=== PATIENT | female | born 1990 | race American Indian/Alaskan Native ===

== ENCOUNTER 2017-10-21 13:32 | Emergency (ER) | payer MEDICAID, OTHER ==
[2017-10-21 14:20] VITALS: BP 114/59
[2017-10-21 14:45] LABS: Basophils % (Auto) 0.5 % (0.0-1.8); Eosinophils % (Auto) 0.3 % (0.0-4.3); Hematocrit 39.4 % (30.3-42.9); Hemoglobin 13.3 gm/dl (10.1-14.3); Mean Corpuscular HGB Conc 34 % (30-34); Mean Corpuscular Hemoglobin 30 pg (28-32); Mean Corpuscular Volume 89 fl (79-97); Platelet Count 254 K/mm3 (140-440); Red Blood Count 4.43 M/mm3 (3.65-5.03); Red Cell Distribution Width 12.6 % (13.2-15.2); White Blood Count 9.1 K/mm3 (4.5-11.0)
[2017-10-21 15:28] LABS: Bilirubin,Urine Negative (Negative); Blood,Urine Moderate (Negative); Ketones,Urine Negative (Negative)
[2017-10-21 15:29] LABS: Leukocyte Esterase,Urine Moderate (Negative); Nitrite,Urine Negative (Negative)
[2017-10-21 15:38] LABS: Trichomonas,Urine Present /HPF
== END 2017-10-21 21:15 | disposition left against medical advice (07) ==
LOC: ED 13:32
DX: Z53.21 Procedure and treatment not carried out due to patient leaving prior to being seen by health care provider (principal)
CPT/HCPCS: 36415; 81001; 81025; 83880; 84703; 85025

== ENCOUNTER 2017-12-17 09:28 | Outpatient (CLI) | payer OTHER, MEDICAID ==
[2017-12-17 10:15] VITALS: BP 109/58
[2017-12-17 10:22] LABS: Bilirubin,Urine NEG (Negative); Blood,Urine NEG (Negative); Color,Urine Yellow (Yellow); Mucus,Urine FEW /HPF; Nitrite,Urine NEG (Negative); Protein,Urine <15 mg/dL mg/dL (Negative)
== END 2017-12-17 10:45 | disposition home or self-care (01) ==
LOC: TRG 09:28
PROVIDERS: ATTEND Obstetrics & Gynecology
DX: O47.02 False labor before 37 completed weeks of gestation, second trimester (principal); Z3A.20 20 weeks gestation of pregnancy
CPT/HCPCS: 59025; 81001

== ENCOUNTER 2022-05-05 11:11 | Outpatient (CLI) | payer OTHER ==
[2022-05-05 11:46] VITALS: BP 121/64
[2022-05-05 12:42] LABS: Bacteria,Urine 1+ /HPF (Negative); Mucus,Urine 3+ /HPF
[2022-05-05 12:49] LABS: Bilirubin,Urine Negative (Negative); Color,Urine Yellow (Yellow)
[2022-05-05 12:50] LABS: Blood,Urine Negative (Negative)
[2022-05-05 12:53] LABS: Amphetamine Screen,Urine Negative; Benzodiazepines Screen,Urine Negative; Cannabinoid Screen,Urine Negative; Cocaine Screen,Urine Negative; Methadone Screen,Urine Negative; Opiate Screen,Urine Negative
--- NOTE | 2022-05-05 12:57 | Ultrasound Report ---
ULTRASOUND OBSTETRIC LIMITED INDICATION / CLINICAL INFORMATION: r/o abruption. - Clinical Gestational Age (GA) in weeks, days: 30, 2 TECHNIQUE: Transabdominal. COMPARISON: None available. FINDINGS: HEART RATE (beats per minute): 143 AMNIOTIC FLUID INDEX (cm) = 16.4 (normal = 7-24 cm) PRESENTATION: Cephalic. ADDITIONAL FINDINGS: The placenta is posteriorly located on the left. No abruption identified. IMPRESSION: 1. Single viable intrauterine . 2. No evidence of abruption. Signer Name: Harish Aceves MD Signed: 05/05/2022 12:52 PM Workstation Name: [id number]
--- NOTE | 2022-05-05 12:59 | Ultrasound Report ---
ULTRASOUND BREAST RIGHT LIMITED, 05/05/2022 CLINICAL INFORMATION / INDICATION: pain in the rt breast.. 30 week TECHNIQUE: Targeted ultrasound evaluation was performed of the area of interest. COMPARISON: None. FINDINGS: In the area reported pain at the 4:00 position in the areolar margin, along the junction of the cutaneous layer in breast tissue a thin tubular structure is seen which appears per the technolo gist to connect to the ductal system. No flow is seen at the margins or internally. Thickness is only 2 mm. Some portions show mild internal echoes. No other abnormalities are seen. IMPRESSION: Small retroareolar ducts are seen in the area of reported pain with a very superficial du cts showing mild internal echogenicity. In this patient in third trimester probably this re presents a small amount of inspissated breast milk in a minimal duct and has a benign type of appeara nce. Follow up recommendation: Clinical follow-up. If this persists ultrasound could be repeated. BI-RADS Category 2: BENIGN. A normal or "negative" report should not preclude biopsy or follow-up of a clinically suspicious find ing. Signer Name: Mickey Edwards MD Signed: 05/05/2022 12:55 PM Workstation Name: [email or web address]
== END 2022-05-05 14:00 | disposition home or self-care (01) ==
LOC: TRG 11:11 → APU 11:14 → TRG 14:00
PROVIDERS: ATTEND Obstetrics & Gynecology
DX: O26.893 Other specified pregnancy related conditions, third trimester (principal); R10.2 Pelvic and perineal pain; Z3A.30 30 weeks gestation of pregnancy
CPT/HCPCS: 59025; 76815; 80307; 81001